=== PATIENT | female | born 1955 | race Caucasian/White ===

== ENCOUNTER 2021-02-21 08:17 | Outpatient (CLI) | payer MEDICARE, SELFPAY ==
--- NOTE | 2021-02-21 08:30 | MM_ITS ---
WS: [id number] BILATERAL SCREENING DIGITAL MAMMOGRAM WITH CAD HISTORY: SCREENING COMPARISON: 07/14/2015 Bilateral CC and MLO views submitted. Computer aided detection analyzed. Breast composition: There are scattered areas of fibroglandular density. No suspicious masses, microc alcifications or architectural distortion. Benign calcification posterior upper RIGHT breast. MM/[id number] IMPRESSION: BI-RADS: 2-Benign FOLLOW UP: 1 Year Follow-up
== END 2021-02-21 08:18 | disposition home or self-care (01) ==
LOC: RADSHAW 08:21
PROVIDERS: PCP Family Medicine; Visit Provider Family Medicine
DX: Z12.31 Encounter for screening mammogram for malignant neoplasm of breast (principal)
CPT/HCPCS: 77067

== ENCOUNTER 2022-02-27 14:03 | Outpatient (CLI) | payer MEDICARE, SELFPAY ==
--- NOTE | 2022-02-27 14:22 | XR_ITS ---
WS: [email or web address] DEXA (DUAL ENERGY X-RAY ABSORPTIOMETRY) Bone mineral density was performed using a [employer] machine. HISTORY: POST MENOPAUSAL COMPARISON: None available. Lumbar spine BMD (L1-L4): 1.076 g/cm2 T score: -0.9 Z score: 1.1 Total hip BMD: Left: 0.828 g/cm2. T score: -1.4 Z score: 0.1 Right: 0.862 g/cm2. T score: -1.2 Z score: 0.4 10 year probability of a major osteoporotic fracture is 8.9%. XR/XR DEXA axial skeleton* [id number] IMPRESSION: OSTEOPENIA based upon the WHO classification for females.
== END 2022-02-27 14:04 | disposition home or self-care (01) ==
PROVIDERS: PCP Family Medicine; Visit Provider Nurse Practitioner Family
DX: Z78.0 Asymptomatic menopausal state (principal)
CPT/HCPCS: 77080

== ENCOUNTER 2022-03-07 12:53 | Outpatient (CLI) | payer MEDICARE, SELFPAY ==
--- NOTE | 2022-03-07 13:06 | MM_ITS ---
WS: [email or web address] BILATERAL 3D TOMOSYNTHESIS DIGITAL SCREENING MAMMOGRAPHY WITH CAD CLINICAL INFORMATION: SCREENING HISTORY: Screening mammogram. No current complaints. COMPARISON: February 21, 2021 TECHNIQUE: Bilateral CC and MLO views. FINDINGS: Scattered fibroglandular densities bilaterally. No suspicious focal mass, asymmetry, calcifications, or architectural distortion. No evidence of malignancy. A few incidental punctate calcifications. Vas cular calcification.. MM/[place] [id number] IMPRESSION: BI-RADS: 2-Benign FOLLOW UP: 1 Year Follow-up Recommend return to annual screening mammography.
== END 2022-03-07 12:54 | disposition home or self-care (01) ==
LOC: RAD 12:54
PROVIDERS: PCP Family Medicine; Visit Provider Family Medicine
DX: Z12.31 Encounter for screening mammogram for malignant neoplasm of breast (principal)
CPT/HCPCS: 77063; 77067

== ENCOUNTER 2023-03-12 13:55 | Outpatient (CLI) | payer MEDICARE, SELFPAY ==
--- NOTE | 2023-03-12 14:06 | MM_ITS ---
WS: [id number] BILATERAL 3D TOMOSYNTHESIS DIGITAL SCREENING MAMMOGRAPHY WITH CAD CLINICAL INFORMATION: SCREENING HISTORY: Screening mammogram. No current complaints. COMPARISON: 2021 TECHNIQUE: Bilateral CC and MLO views. FINDINGS: Scattered fibroglandular densities bilaterally. No suspicious focal mass, asymmetry, calcifications, or architectural distortion. No evidence of malignancy. Incidental punctate calcification LEFT breast . Vascular calcification. IMPRESSION: MM/[place] [id number] BI-RADS: 2-Benign FOLLOW UP: 1 Year Follow-up Recommend return to annual screening mammography.
== END 2023-03-12 13:56 | disposition home or self-care (01) ==
LOC: RAD 13:55
PROVIDERS: PCP Family Medicine; Visit Provider Family Medicine
DX: Z12.31 Encounter for screening mammogram for malignant neoplasm of breast (principal)
CPT/HCPCS: 77063; 77067

== ENCOUNTER 2023-05-22 07:00 | Outpatient (CLI) | payer MEDICARE, SELFPAY ==
--- NOTE | 2023-05-22 07:15 | MR_ITS ---
WS: [email or web address] EXAMINATION: MR hip RT wo con* [id number] ORDER DATE: 05/22/2023 7:18 AM COMPARISON: MRI pelvis 2010 HISTORY: R HIP PAIN CONTRAST: MRI pelvis 2011 TECHNIQUE: Coronal STIR of the Pelvis. Coronal proton density, coronal T1, axial T2 fat sat, axial T1 , sagittal T2 fat sat, and sagittal T1 performed of the hip. FINDINGS: Advanced degenerative arthritis RIGHT hip is progressed compared to 2011. Advanced joint space narrow ing with near [id number] articulation. Hypertrophic changes about the acetabulum. Subchondral cysti c change involving the acetabulum. Extensive subchondral cystic change involving the femoral head wit h large subchondral cysts measuring up to 1.8 cm. Hypertrophic changes about the femoral head neck ju nction. Edema in the femoral head extending into the femoral neck. Small amount of serpiginous suscep tibility artifact in the posterior femoral head can be seen with early avascular necrosis. LEFT hip is normal in appearance. No significant edema. Normal bone marrow signal in the sacrum and l ower lumbar spine. No other acute findings. IMPRESSION: 1. Advanced degenerative arthritis RIGHT hip with extensive subchondral cystic change in the femoral head with near [id number] articulation significantly progressed compared to 2011. 2. Edema in the RIGHT femoral head and neck with hypertrophic changes about the femoral head neck ju nction and acetabulum. Small amount of edema and subchondral cystic change in the adjacent acetabulum . 3. Small amount of serpiginous susceptibility artifact in the posterior femoral head can be seen wit h early avascular necrosis. 4. Normal bone marrow signal in the LEFT hip.
== END 2023-05-22 07:01 | disposition home or self-care (01) ==
LOC: RAD 07:00
PROVIDERS: PCP Family Medicine; Visit Provider Family Medicine
DX: M25.551 Pain in right hip (principal); M16.11 Unilateral primary osteoarthritis, right hip; M25.451 Effusion, right hip
CPT/HCPCS: 73721

== ENCOUNTER → 2023-09-25 11:52 | Outpatient (BNVA) | payer MEDICARE, SELFPAY | PROVIDERS: PCP Family Medicine; Visit Provider Family Medicine | DX: Z13.6 Encounter for screening for cardiovascular disorders (principal); R73.9 Hyperglycemia, unspecified | CPT/HCPCS: 80053; 83036; 85025 ==

== ENCOUNTER → 2024-01-12 12:20 | Outpatient (BNVA) | payer MEDICARE, SELFPAY | PROVIDERS: PCP Family Medicine; Visit Provider Family Medicine | DX: Z86.39 Personal history of other endocrine, nutritional and metabolic disease (principal); E55.9 Vitamin D deficiency, unspecified; N18.2 Chronic kidney disease, stage 2 (mild); E06.3 Autoimmune thyroiditis | CPT/HCPCS: 80048; 82306; 84439; 84443; 86376 ==

== ENCOUNTER 2024-03-01 12:47 | Outpatient (CLI) | payer MEDICARE, SELFPAY ==
--- NOTE | 2024-03-01 12:49 | XR_ITS ---
WS: [email or web address] DEXA (DUAL ENERGY X-RAY ABSORPTIOMETRY) Bone mineral density was performed using a [employer] machine. HISTORY: screening COMPARISON: 02/27/2022 Lumbar spine BMD (L1-L4): 0.993 g/cm2 T score: -1.6 Z score: 0.7 Total hip BMD: Left: 0.781 (g/cm2). T score: -1.8 (no units) Z score: 0.1 (no units) Left forearm BMD: 0.811 g/cm2. T score: -0.7 Z score: 1.0 10 year probability of a major osteoporotic fracture is 8.7%. Compared to the prior study from 02/27/2022. Lumbar spine bone mineral density has decreased by 7.7%. LEFT hip bone mineral density has decreased by 5.7%. XR/XR DEXA axial skeleton* [id number] IMPRESSION: OSTEOPENIA based upon the WHO classification for females. Significant decrease in bone mineral density within both the lumbar spine and L EFT hip since the prior study.
== END 2024-03-01 12:48 | disposition home or self-care (01) ==
LOC: RAD 12:48
PROVIDERS: PCP Family Medicine; Visit Provider Family Medicine
DX: Z13.820 Encounter for screening for osteoporosis (principal); M85.80 Other specified disorders of bone density and structure, unspecified site
CPT/HCPCS: 77080

== ENCOUNTER → 2024-03-29 15:27 | Outpatient (BNVA) | payer MEDICARE, SELFPAY | PROVIDERS: PCP Family Medicine; Visit Provider Family Medicine | DX: E06.3 Autoimmune thyroiditis (principal) | CPT/HCPCS: 80053; 84439; 84443; 86376 ==

== ENCOUNTER 2024-05-03 08:01 | Outpatient (CLI) | payer MEDICARE, SELFPAY ==
--- NOTE | 2024-05-03 | MM_ITS ---
WS: [email or web address] VIEWS: MLO and CC views both breasts. 3D digital tomosynthesis is also included in this exam. Comparison made with prior exam of 11/06/2010, 07/14/2015, 02/21/2021, 03/07/2022, 03/12/2023.. Findings: The breasts are almost entirely fatty. No sign of suspicious mass, tumor calcification or architectural distortion. MM/MM scr BI tomosynthesis [id number] Impression: BI-RADS: 1 - Negative. FOLLOW-UP: 1 Year Follow-up This mammogram was also analyzed by the Computer Aided Detection System R2 Imag e Theoretical Physicist.
--- NOTE | 2024-05-03 08:03 | CT_ITS ---
WS: [email or web address] CT NECK TECHNIQUE: Noncontrast CT of the neck with coronal and sagittal reformatted images. CLINICAL INFORMATION: DYSPHAGIA COMPARISON: None. DLP: 122.[address] scans at [facility] use at least one of these dose optimization techniques: automated e xposure control; mA and/or kV adjustment per patient size (includes targeted exams where dose is matc hed to clinical indication); or iterative reconstruction. FINDINGS: Straightening of the normal cervical lordosis. Mild spondylitic changes. Anterior hypertrophic change s cervical spine. Dental artifact degrades some images. Parotid glands appear normal. Submandibular g lands appear normal. No evidence of supraglottic or glottic mass. Normal parapharyngeal fat. Normal v allecula and piriform sinuses. Normal subglottic airway. Fibrosis in the lung apices. Paranasal sinuses and mastoid air cells are well aerated. CT/CT neck wo con [id number] IMPRESSION: 1. No acute neck findings. 2. No evidence of supraglottic or glottic mass. 3. Normal salivary glands. 4. No cervical lymphadenopathy.
--- NOTE | 2024-05-03 08:03 | FL_ITS ---
WS: [email or web address] Exam: FL barium swallow [id number] Date/Time of Exam: 05/03/2024 8:03 AM Reason For Exam: DYSPHAGIA Fluoroscopy time: Oropharyngeal phase of swallowing was normal. There is mild posterior extrinsic narrowing of the cerv ical esophagus at the C3-4, C4-5, C5-6 and C6-7 levels secondary to anterior osteophytes and probable thickening of the anterior longitudinal ligament. No other significant stenosis identified. No intri nsic esophageal masses were noted. Motility was normal. No hiatal hernia or GE reflux. The esophagus is not displaced. FL/FL barium swallow [id number] IMPRESSION: 1. Mild extrinsic narrowing of the cervical esophagus from C3-C7 secondary to a nterior spondylosis and probable ligamentous thickening. 2. No intrinsic esophageal mass and no other significant area of narrowing. Minutes # of spot films:
== END 2024-05-03 08:02 | disposition home or self-care (01) ==
LOC: RAD 08:02
PROVIDERS: PCP Family Medicine; Visit Provider Specialist
DX: Z12.31 Encounter for screening mammogram for malignant neoplasm of breast (principal); R92.313 Mammographic fatty tissue density, bilateral breasts; R13.10 Dysphagia, unspecified; K22.2 Esophageal obstruction; M25.70 Osteophyte, unspecified joint; R93.7 Abnormal findings on diagnostic imaging of other parts of musculoskeletal system; J84.10 Pulmonary fibrosis, unspecified
CPT/HCPCS: 70490; 74220; 77063; 77067

== ENCOUNTER → 2025-02-04 10:41 | Outpatient (BNVA) | payer MEDICARE, SELFPAY | PROVIDERS: PCP Family Medicine; Visit Provider Family Medicine | DX: Z13.6 Encounter for screening for cardiovascular disorders (principal) | CPT/HCPCS: 80053; 80061; 84439; 84443; 85025 ==

== ENCOUNTER 2025-03-04 12:29 | Emergency (ER) | payer MEDICARE, SELFPAY ==
--- OUTSIDE RECORDS SUMMARY | 2025-03-04 12:35 | XMS_ITS | Clinical Summary ---
Author Organization [facility] Address [address] 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 Resolved Problems Problem Noted Date Diagnosed Date Resolved Date Preoperative general physical examination 07/26/2023 08/12/2023 Encounters Date Type Department Care Team Description 01/26/2025 External Device Data STL ABSTRACTION Provider, Abstract 01/25/2025 External Device Data ST[facility] ABSTRACTION Provider, Abstract 12/28/2024 External Device Data ST[facility] ABSTRACTION Provider, Abstract 12/21/2024 External Device Data ST[facility] ABSTRACTION Provider, Abstract 12/14/2024 External Device Data ST[facility] ABSTRACTION Provider, Abstract from Last 3 Months Immunizations Immunization Administration Dates Next Due Influenza Seasonal Unspecified Formulation IM Family History Medical History Relation Name Comments Atrial fibrillation Mother Broken h eart syndrome Relation Name Status Comments Mother Social History Tobacco Use Types Packs/Day Years Used Date Smoking Tobacco: Never Smokeless Tobacco: Never Tobacco Cessation:Counseling Given: Not Answered Alcohol Use Standard Drinks/Week Comments Not Currently 0 (1 standard drink = 0.6 oz pur e alcohol) Feeling Safe Answer Date Recorded Are you in a relationship wi th someone who hurts you emotionally and/or physically? 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 Gender Identity Female 09/04/2023 8:50 PM CDT Sexual Orientation Straight 09/04/2023 8: 50 PM CDT Last Filed Vital Signs Vital Sign Reading Time Taken Comments Blood Pressure 100/72 09/27/2024 2:07 PM CDT Pulse 65 08/13/2023 8:18 AM CDT Temperature 36.7 C (98 F) 08/13/2023 8:18 AM CDT Respiratory Rate 18 08/13/2023 8:18 AM CDT Oxygen Saturation 95% 08/13/2023 8:18 AM CDT Inhaled Oxygen Concentration - - Weight 47.6 kg (105 lb) 09/27/2024 2:07 PM CDT Height 162.6 cm (5' 4 ) 09/27/2024 2:07 PM CDT Body Mass Index 18.02 09/27/2024 2:07 PM CDT Plan of Treatment Health Maintenance Due Date Last Done Comments DTAP/TDAP/TD VACCINES (1 - Tdap) 1973 BREAST CANCER SCREENING 1994 COLORECTAL SCREENING 09/10/1999 Colorectal Cancer Screening 09/10/1999 FIT-DNA Q 3 years 09/10/1999 FIT/FOBT Q 1 year 09/10/1999 Flex Sig/CT Colonography Q 5 years 09/10/1999 PNEUMOCOCCAL VACCINE 50+ YEA RS (1 of 1 - PCV) 2004 ZOSTER VACCINE (1 of 2) 2004 OSTEOPOROSIS SCREENING 09/10/2019 INFLUENZA VACCINE (#1) 2024 , 12/31/2022, 12/18/2021, Additional history exists COVID-19 Vaccine (2024-2 6 season) 2024 12/31/2022, 12/18/2021, 07/17/2021, Additional history exists RSV VACCINE (60+ or ) (1 - 1-dose 75+ series) 2029 Medical Devices Implanted Type Area Supervisor Tellers Device Identifier Shelf Expiration Date Model / Serial / Lot Stem Fem Actis Colr Std Sz5 1010-11-050 - [id number] Implanted:Qty: 1 on 08/12/2023 by Rafael Andrew MD at [facility] Hip Right: Hip [employer] [id number] 06/04/2033 1010-11-0 50 / / [id number] Head Fem Art/Rubén Cer Sz36 1365-36-310 - [id number] Implanted:Qty: 1 on 08/12/2023 by Rafael Andrew MD at [facility] Hip Right: Hip [employer] [id number] 01/05/2028 1365-36-3 10 / / [id number] Emphasys Poly Liner 48mm 36mm Implanted:Qty: 1 on 08/12/2023 by Rafael Andrew MD at [facility] Right: Hip 06/04/2028 DEPUY-472 2-48-036 / / [id number] [employer] Acetab Shell 48mm Implanted:Qty: 1 on 08/12/2023 by Rafael Andrew MD at [facility] Right: Hip 07/05/2033 DEPUY-471 0-48-300 / / [id number] [place] [address] MEDICARE HMO RX [facility] Medicare Part D Advance Directives For more information, please contact: [phone] Documents on File Type Date Recorded Patient Gas Charger Expl anation Advance Directive POA 06/25/2023 5:16 PM A dvance Directive POA
--- OUTSIDE RECORDS SUMMARY | 2025-03-04 12:35 | XMS_ITS | Encounter Summary ---
Author Organization [employer] [facility] Address [address] [place] [address] Care Team Providers Care Flavor Maker Name Role Phone Unavailable Primary Care Provider Unavailabl e Encounter Details Date Type Department Care Team (Latest Contact Info) Description 08/24/[address] 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
--- OUTSIDE RECORDS SUMMARY | 2025-03-04 12:35 | XMS_ITS | Encounter Summary ---
Author Organization [facility] Address [address] [place] [address] Care Team Providers Care Group Underwriter Name Role Phone Unavailable Primary Care Provider Unavailabl e Encounter Details Date Type Department Care Team (Latest Contact Info) Description 06/13/1998 Outpatient Historical [facility] Dermatology- [facility] Oscar [address] [place] [address] Srinivas Benites MD NO ADDRESS ON FILE Benign randy skin trunk (Primary Dx) Social History Tobacco Use Types Packs/Day Years Used Date Smoking Tobacco: Never Assessed Comments Unknown Sex and Gender Information Value Date Recorded Sex Assigned at Not on file 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
--- OUTSIDE RECORDS SUMMARY | 2025-03-04 12:35 | XMS_ITS | Clinical Summary ---
Author Organization 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
--- OUTSIDE RECORDS SUMMARY | 2025-03-04 12:35 | XMS_ITS | Encounter Summary ---
Author Organization [employer] 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
--- OUTSIDE RECORDS SUMMARY | 2025-03-04 12:35 | XMS_ITS | Data Portability ---
Author Organization [facility] [place] [facility], [facility] Address [address] [address] Care Team Providers Care Active Directory Administrator Name Role Phone KENISHA POLLOCK Primary Care Provider Unavaila ble Assessment Encounter Date Assessment Date Assessment LastModified by Organization Details LastModified Time 04/16/2023 04/16/2023 flonase otc. [email or web address] Not available 04/16/2023 12:11:49 Plan of Treatment Reminders Order Date Submit Date Provider Last Modified By Organization Details Last Modified Time Details Appointments None record ed. Lab ESR (eryth rocyte sedime ntatio n rate), blood 2023 024 [facility] ([facility]), [address] [place], [address], 4 10:23:50 C-reac tive protei n, quanti tative , serum or plasma 2023 024 HERNSHAW [employer] [facility], [address] [place] [address], [facility] [address] [place], [address], 4 11:11:15 Referral None record ed. Procedures None record ed. Surgeries None record ed. Imaging XR, hip, unilat eral, 2 or 3 view 2023 024 [email or web address] [facility] ([facility]), [address] [place], [address], 4 12:34:43 MRI, hip, w/o contra st 2023 024 [email or web address] [facility], [address] [place], [address], 17:24:55 Medication Orders predni sone 20 mg tablet 2023 024 [facility], [facility] [place], [address], 4 13:23:50 doxycy luong hyclat e 100 mg tablet 2023 024 [facility], [facility] [place], [address], 4 13:23:45 Patient TargetsNo targets recorded. Patient InstructionsNo instructions recorded. Reason for Referral None Reported. Results Created Date Observation Date Name Description Value Unit Range Abnormal Flag Note LastModifiedBy Organization Detail LastModifiedTime 04/24/1904/24/2023 CBC WBC 6.6 x10 4.0-10 .5 Not Available [place] [facility] [address] [facility], [place], [address], 04/24/2023 09:07:06 04/24/1904/24/2023 CBC RBC 4.57 x10 3.50-5 .50 Not Available [place] [facility] [address] [facility], [place], [address], 04/24/2023 09:07:06 04/24/1904/24/2023 CBC HGB 13.5 g/dL 12.0-1 6.0 Not Available [place] [facility] [address] N[address] [facility], [place], [address], 04/24/2023 09:07:06 04/24/19 24 04/24/2023 CBC HCT 40.1 % 37.0-4 7.0 Not Available [facility] [place] [facility] [address] Lilibeth Azar [facility] 1, [place], [address], 04/24/2023 09:07:06 04/24/19 24 04/24/2023 CBC MCV 87.8 fL 80.0-9 9.9 Not Available [place] [facility] [address] [facility], [place], [address], 04/24/2023 09:07:06 04/24/19 24 04/24/2023 CBC MCH 29.5 pg 27.0-3 2.0 Not Available [facility] [place] [facility] [address] Lilibeth Azar [facility] 1, [place], [address], 04/24/2023 09:07:06 04/24/19 24 04/24/2023 CBC MCHC 33.6 g/dL 32.0-3 6.0 Not Available [place] [facility] [address] [facility], [place], [address], 04/24/2023 09:07:06 04/24/19 24 04/24/2023 CBC RDW 13.4 % 11.5-1 4.6 Not Available [place] [facility] [address] [facility], [place], [address], 04/24/2023 09:07:06 04/24/19 24 04/24/2023 CBC plt 266.1 x10 140.0- 451.0 Not Available [place] [facility] [address] [facility], [place], [address], 04/24/2023 09:07:06 04/24/1904/24/2023 CBC lymphocytes % 19.3 % 20.0-5 0.0 low Not Available [place] [facility] [address] [facility], [place], [address], 04/24/2023 09:07:06 04/24/19 24 04/24/2023 CBC granulcytes % 66.2 % 30.0-7 0.0 Not Available [facility] [address] [address], [place], [address], 04/24/2023 09:07:06 04/24/19 24 04/24/2023 CBC monocytes % 10.0 % 2.0-10 .0 Not Available [facility] [address] [address], [place], [address], 04/24/2023 09:07:06 04/24/19 24 04/24/2023 CBC granulcytes# 4.4 x10 Not Trupti ilable [facility] [address] [address], [place], [address], 04/24/2023 09:07:06 04/24/19 24 04/24/2023 CBC lymphocytes # 1.3 x10 Not Available [facility] [address] [address], [place], [address], 04/24/2023 09:07:06 04/24/19 24 04/24/2023 CBC monocytes # 0.7 x10 Not Avai lable [facility] [address], [address], 04/24/2023 09:07:06 04/24/19 24 04/24/2023 CMP (FEMA LE) glucose 107.0 mg/dL 60.0-9 9.0 high Not Available [facility] [address] [address], [place], [address], 04/24/2023 10:17:06 04/24/19 24 04/24/2023 CMP (FEMA LE) BUN (blood urea nitrogen) 12.0 mg/dL 10.0-2 6.0 Not Available [facility] [address] [address], [place], [address], 04/24/2023 10:17:06 04/24/19 24 04/24/2023 CMP (FEMA LE) creatinine (serum) 0.9 mg/dL 0.4-1. 5 Not Available [facility] [address] [facility] 1, [place], [address], 04/24/2023 10:17:06 04/24/19 24 04/24/2023 CMP (FEMA LE) BUN/creatini ne ratio 13.19 ratio Not Available [facility] [address] [facility] 1, [place], [address], 04/24/2023 10:17:06 04/24/19 24 04/24/2023 CMP (FEMA LE) eGFR calculated 65.3 Not Available [facility] [address] [address], [place], [address], 04/24/2023 10:17:06 04/24/19 24 04/24/2023 CMP (FEMA LE) total protein 7.4 g/dL 6.0-8. 5 Not Available [facility] [address] [address], [place], [address], 04/24/2023 10:17:06 04/24/19 24 04/24/2023 CMP (FEMA LE) total bilirubin 0.6 mg/dL 0.2-1. 3 Not Available [facility] [address] [address], [place], [address], 04/24/2023 10:17:06 04/24/19 24 04/24/2023 CMP (FEMA LE) albumin 4.2 g/dL 3.5-5. 5 Not Available [facility] [address] [address], [place], [address], 04/24/2023 10:17:06 04/24/19 24 04/24/2023 CMP (FEMA LE) globulin 3.2 calc Not Available [facility] [address] [facility] 1, [place], [address], 04/24/2023 10:17:06 04/24/19 24 04/24/2023 CMP (FEMA LE) AST (SGOT) 34.0 U/L 0.0-46 .0 Not Available [place] [facility] [address] [facility] 1, [place], [address], 04/24/2023 10:17:06 04/24/19 24 04/24/2023 CMP (FEMA LE) altv (SGPT) 30.0 U/L 13.0-6 9.0 normal Not Available [place] [facility] [address] [facility] 1, [place], [address], 04/24/2023 10:17:06 04/24/19 24 04/24/2023 CMP (FEMA LE) A/G ratio 1.3 ratio Not Available [facility] [address] [facility] 1, [place], [address], 04/24/2023 10:17:06 04/24/19 24 04/24/2023 CMP (FEMA LE) ALP phos 83.0 U/L 30.0-1 40.0 normal Not Available [place] [facility] [address] [facility] 1, [place], [address], 04/24/2023 10:17:06 04/24/19 24 04/24/2023 CMP (FEMA LE) calcium 9.3 mg/dL 8.4-10 .5 Not Available [place] [facility] [address] [facility] 1, [place], [address], 04/24/2023 10:17:06 04/24/19 24 04/24/2023 CMP (FEMA LE) sodium 142.0 mmol/ L 136.0- 145.0 Not Available [place] [facility] [address] [facility], [place], [address], 04/24/2023 10:17:06 04/24/19 24 04/24/2023 CMP (FEMA LE) potassium 4.3 mmol/ L 3.5-5. 1 Not Available [place] [facility] [address] [facility] 1, [place], [address], 04/24/2023 10:17:06 04/24/19 24 04/24/2023 CMP (FEMA LE) chloride 108.0 mmol/ L 98.0-1 10.0 normal Not Available [place] [facility] [address] [facility] 1, [place], [address], 04/24/2023 10:17:06 04/24/19 24 04/24/2023 CMP (FEMA LE) C02 30.0 mmol/ L 22.0-3 1.0 Not Available [place] [facility] [address] [facility] 1, [place], [address], 04/24/2023 10:17:06 04/24/19 24 04/24/2023 CMP (FEMA LE) anion gap 4.0 calc Not Available [facility] [address] [facility] 1, [place], [address], 04/24/2023 10:17:06 04/24/19 24 04/24/2023 CMP (FEMA LE) osmolality 293.4 calc Not Available [place] [facility] [address] [facility] 1, [place], [address], 04/24/2023 10:17:06 04/24/19 24 04/24/2023 LIPID PROFI LE (FEMA LE) cholesterol 191.0 mg/dL 0.0-20 0.0 Not Available [place] [facility] [address] [facility] 1, [place], [address], 04/24/2023 10:17:08 04/24/19 24 04/24/2023 LIPID PROFI LE (FEMA LE) trig 88.0 mg/dL 0.0-15 0.0 Not Available [facility] [address] [address], [place], [address], 04/24/2023 10:17:08 04/24/19 24 04/24/2023 LIPID PROFI LE (FEMA LE) HDL - direct 52.0 mg/dL >40.0 Not Available [facility] [address] [facility] 1, [place], [address], 04/24/2023 10:17:08 04/24/19 24 04/24/2023 LIPID PROFI LE (FEMA LE) VLDL - direct 17.6 mg/dL Not Available [facility] [address] [address], [place], [address], 04/24/2023 10:17:08 04/24/19 24 04/24/2023 LIPID PROFI LE (FEMA LE) LDL - direct 121.4 mg/dL 0.0-13 0.0 Not Available [facility] [address] [address], [place], [address], 04/24/2023 10:17:08 04/24/19 24 04/25/2023 C-DAGOBERTO CTIVE PROTE IN C-reactive protein 8.2 mg/L <8.0 high Not Available [facility] [address] [place], [address], 04/25/2023 11:11:15 04/24/19 24 04/24/2023 ESR (eryt hrocy te sedim entat ion rate) , blood SedRate 31 Not Available [facility] ([facility]) [address] [place], [address], 04/24/2023 08:35:36 03/13/20 23 03/12/2023 MAMMO , scree jonathan, bilat eral No observ ation record ed. [email or web address] [facility] [address] [place], [address], 03/25/2023 16:21:37 05/22/19 24 05/22/2023 MRI, hip, w/o contr ast No observ ation record ed. [email or web address] [facility] [address] [place], [address], 06/23/2023 14:45:35 06/04/19 24 05/07/2023 XR, hip, unila teral , 2 or 3 view No observ ation record ed. [email or web address] [facility] [address] [place], [address], 06/09/2023 18:45:07 Result Notes None recorded. Problems Name Problem SNOMED Code Status Onset Date Resolution Date Notes Provider Name and Address Organization Details Recorded Time Lipoma Active 022 Lipoma removed 2000; 02/15/20 22 10:02AM by Gita Perez CMT, Office Visit; Promoted ; acuity set as *; Not Available [facility] 3 21:52:05 Pain of multiple joints 22303174 Active [address], [address] , [facility] 4 08:35:39 Pain of hip region 97632290 Active 024 SANJUANA stubbs [facility] 4 09:54:05 Problem Notes None recorded. Procedures Surgical History Date Name Laterality Status Provider Name and Address Organization Details Recorded Time 3 mammography completed SANJUANA HU [facility] Brett [facility]ino 03/17/2023 15:56:26 Imaging Results None recorded. Procedure Notes None recorded. Medical Equipment None Reported. Allergies No known drug allergies Medications Name Sig Start Date Stop Date Status Note LastModified by Organization Details LastModified Time azithromycin 250 mg tablet TAKE 2 TABLETS (500 MG) BY ORAL ROUTE ONCE DAILY FOR 1 DAY THEN 1 TABLET (250 MG) BY ORAL ROUTE ONCE DAILY FOR 4 DAYS 04/30 completed Not Available Not Available Not Available prednisone 20 mg tablet TAKE 1 TABLET BY MOUTH EVERY DAY EVERY MORNING for 7 days 04/30 completed Not Available Not Available Not Available sertraline 25 mg tablet 04/16 completed Not Available Not Available Not Available doxycycline hyclate 100 mg tablet TAKE 1 TABLET BY MOUTH TWICE DAILY for 10 days 04/30 completed Not Available Not Available Not Available Vitals Date Recorded Body height Body mass index (BMI) Body weight Oxygen saturation Heart rate Body temperature Respiratory rate Systolic And Diastolic Provider Name and Address Organization Details Last Updated DateTime 4 162.56 cm 20.3 kg/m2 83214.9 g 96 % 107 /min 97.3 [degF] 20 /min 112/65 mm[Hg] Teresa Grace [facility] 4 08:23:37 Date Recorded Body height Body weight Oxygen saturation Heart rate Respiratory rate Body temperature Systolic And Diastolic Provider Name and Address Organization Details Last Updated DateTime 4 162.56 cm 75952.8 1 g 98 % 94 /min 18 /min 98.1 [degF] 118/64 mm[Hg] JAYLENE NICOLAS [facility] 4 11:44:47 Date Recorded Body height Body mass index (BMI) Body weight Oxygen saturation Heart rate Respiratory rate Body temperature Systolic And Diastolic Provider Name and Address Organization Details Last Updated DateTime 4 162.56 cm 20.1 kg/m2 31612.3 1 g 98 % 97 /min 20 /min 97.9 [degF] 110/70 mm[Hg] UNIQUE BOYCE [facility] 4 08:18:06 Date Recorded Body height Body mass index (BMI) Body weight Oxygen saturation Heart rate Respiratory rate Body temperature Systolic And Diastolic Provider Name and Address Organization Details Last Updated DateTime 4 162.56 cm 20 kg/m2 66841.5 1 g 99 % 84 /min 18 /min 98.5 [degF] 120/64 mm[Hg] ESTRADACODIE BRADFORD NICOLAS [facility], [facility] 4 13:36:26 Social History None recorded. Functional Status None recorded. Mental Status None recorded. Family History Nothing Reported. Medical History No medical history recorded. Gynecological HistoryNo gynecological history recorded. Obstetrics History GPAL:G 0 P 0 0 0 0 Immunizations Vaccine Type Date Status Note Provider Nam e and Address Organization Details Recorded Time COVID-19, mRNA, LNP-S, PF, 30 mcg/0.3 mL dose 07/18/2021 completed Not Available [facility] 3 02:32:54 Past Encounters Encounter ID Performer Location Encounter Start Date Encounter Closed Date Diagnosis/Indication Diagnosis SNOMED-CT Code Diagnosis ICD10 Code Diagnosis IMO Codes Diagnosis Note [id number] GONZALO STANLEY PA-C [employer] [facility] ([facility]) [address] [place] [phone] 06/28/2022 10:59:40 06/28/2022 12:14:56 Acute maxillary sinusitis 90570151 J01.00 [id number] GONZALO STANLEY PA-C [employer] [facility] ([facility]) [address] [place] [phone] 03/28/2023 09:42:38 03/28/2023 10:16:18 Acute maxillary sinusitis 07971600 J01.00 [id number] ALBA MENDOZA [employer] [facility] ([facility]) [address] [place] [phone] 5 04/09/2023 08:02:02 04/09/2023 09:33:47 Acute upper respiratory infection 00902521 J06.9 Start doxycyclin e today. Encouraged patient to push fluids and use cool mist humidifier at night. Patient was given nasal saline mist and gel samples to trial. Can take tylenol/ib uprofen as needed for pain and fever. Encouraged patient to return for further evaluation if no improvemen t in 3-5 days. If fever is not resolved in 3-5 days, need to follow up with PCP for further evaluation . If severe SOB or chest pain occurs, go to ED. Patient verbalized understand ing. [id number] Kenisha Pollock MD [employer] [facility] ([facility]) [address] [place] [phone] 04/16/2023 11:20:24 04/16/2023 12:13:09 Fever 375991430 R50.9 Pain of ear 699398693 H9 2.09 Acute uppe r respiratory infection 17181454 J06.9 [id number] Melvin Abraham DO [employer] [facility] ([facility]) [address] [place] [phone] 04/24/2023 08:03:32 04/24/2023 09:18:52 Pain of multiple joints 23553099 M25.50 concern for flair of osteoarthr itis, possibly 2/2 recent vial illness.wi ll give steroid burst. check inflammato ry labs with other labs ordered b Dr. Pollock. keep fu with him next. [id number] Kenisha Pollock MD [employer] [facility] ([facility]) [address] [place] [phone] 04/24/2023 08:41:34 04/24/2023 08:42:15 [id number] Kenisha Pollock MD [employer] [facility] ([facility]) [address] [place] [phone] 04/30/2023 12:23:19 05/10/2023 17:24:55 Pain of multiple joints 30221934 M25.50 Pain of ri ght hip joint 9095302930 20986 M25.551 The patient has been to pt 2 times she has been on been on multiple regimens of NSAIDS. She has been on predisone. She is unable to pivot her foot without having severe pain in her hip. She has to use a walker intermitte ntly at home due to pain. She needs an xray and an MRI to eval for anatomy that may respond to surgical interventi on.Worse when she steps up with her leg multiple times. Health Concerns Section Related Observation LastModified by Organization Detai ls LastModified Time None Recorded Concern Status LastModified by Organization Details LastModified Time None Recorded Advance Directives Directive None Recorded Payers Insurance Date Sequence Insurance Name Policy Number Policy Benz Covered Member ID Benz Member ID Guarantor Name 06/03/2023 1 [employer] (MEDICARE REPLACEMENT/ ADVANTAGE - PPO) Fransisca Bolton [id number] Fransisca Bolton 06/28/2022 1 [place] Fransisca Bolton [id number] Fransisca Bolton 06/03/2023 1 [place] - [place]) [id number] Fransisca Bolton [id number] Fransisca Bolton Notes Date Note Type Note Provider Name and Address Organization Details Recorded Time 04/09/2023 text/html Upper Respirator y SymptomsReported by PatientUpper Respiratory SymptomsFor associated symptoms, patient reportsfever. For location, patient reportshead. For duration, patient reportssymptoms lasting less than 2 weeks. For onset/timing, patient reportsgradual.ROS as noted in the HPI Patient is a 67 year old female who presents to the walk in clinic today for cough and sinus pain. Patient states sinus pain started on 03/20/23 when she was exposed to cleaning chemicals. States she was seen last week and had developed a sinus infection and was treated with azithromycin. Says she felt better while on the Z-pack, however, symptoms returned upon completion. Patient states she has had intermittent fevers for 2 weeks that are easily controlled with tylenol/ibuprofen but states the fevers are not resolving. Sinus pain is worse now than before she started the z-pack. LINSEY CARROLL, JANENE-C [address] [place] [address], [phone], [facility], [place] 04/09/2023 09:21:28 04/16/2023 text/html Upper Respirator y SymptomsReported by PatientUpper Respiratory SymptomsFor quality, patient reportscongested. For associated symptoms, patient reportsshortness of breath,difficulty breathing at night,fatigue,fever, andchills. For location, patient reportshead. For duration, patient reportssymptoms lasting over 2 weeks. For onset/timing, patient reportsgradual.ROS as noted in the HPI Walk in follow up. Patient states sinus pain started on 03/20/23 when she was exposed to cleaning chemicals. States she was seen in March and was treated with azithromycin. patient states she has had intermittent fevers for weeks that are staying around 99 to 100 starting in the evenings, Pt is having left ear pain, chest congestion and has started coughing over the last few days. Pt will finish her Doxycycline on Friday. Kenisha Pollock MD [address] [place] [address], [phone], [facility], LDeclan. 04/16/2023 12:12:32 04/24/2023 text/html Joint PainReport ed by PatientHPIFor quality, patient reportssharp,tingling, anddull. For severity, patient reportsdriving impairment,worsening,i nterferes with sleep, andinterferes with work/school. For associated symptoms, patient reportsfeverandweak limbs(temp goes up to 99.0). For location, patient reportsbilateral neck,bilateral shoulder,bilateral arm,bilateral elbow,bilateral wrist,bilateral hand,__ __,bilateral hip,bilateral knee,bilateral ankle,bilateral foot, and__ __ toe. For duration, patient reportspresent <1 month(1 week). For timing, patient reportsdate of onset:andconstant(last wed.). For aggravating factors, patient reportsmovement/positi oning,bending over, andtwisting. For adls affected, patient reportssweeping,moppin g,bathing,dressing,eat ing, andclimbing stairs. I started having joint and muscle pain last Wed. not getting any better. I used Tylenol and Aleve and it's not helping. I saw Dr Pollock last week and will have labs this morning for him and have an appt. with him next week. pt saw Dr. Pollock for URI symptoms on 04/16/23, was on doxycycline for 1 wk prior.Was told to finish doxycyline.she struggles with b/l hand pain and right hip pain from osteoarthrhtis. it feels like all her joint pains are a lot worse. Melvin Abraham DO [address] [place] [address], [phone], [facility] L[facility]inoC. 04/24/2023 08:41:49 04/30/2023 text/html Joint PainReport ed by PatientHPIFor quality, patient reportsdull. For location, patient reportsbilateral arm,bilateral elbow,bilateral wrist,bilateral hand,__ __,right hip, andright knee. For severity, patient reportsimproving. For aggravating factors, patient reportsmovement/positi oning,bending over, andtwisting. For associated symptoms, patient reportsno fever. For duration, (1 week). Pt was seen at the walk in Dr Abraham on 04/24/23 for joint pain and swelling, pt had some labs and was given prednisone and she finished that this morning, pt states her swelling is down, she still has generalized achyness in her arms and legs.. Pt would like to discuss getting a x-ray on her right hip, pt has tried PT 2 times and water aerobics and she is still dealing with pain in her right hip from a injury that occurred 8 years ago when she did the splits and injured herself. Kenisha Pollock MD [address] [place] [address], [phone], [facility], [place] 05/10/2023 11:43:56 OBGyn Episode No OBEpisode recorded.
--- OUTSIDE RECORDS SUMMARY | 2025-03-04 12:35 | XMS_ITS | Encounter Summary ---
Author Organization [employer] [facility] Address [address] [place] [address] Care Team Providers Care Cosmetic Sales Consultant Name Role Phone Unavailable Primary Care Provider Unavailabl e Encounter Details Date Type Department Care Team (Latest Contact Info) Description 08/17/1998 Outpatient Historical [facility] Koby Reyes MD NO ADDRESS ON FILE Benign randy skin trunk (Primary Dx) Social History Tobacco Use Types Packs/Day Years Used Date Smoking Tobacco: Never Assessed Comments Unknown Sex and Gender Information Value Date Recorded Sex Assigned at Not on file Legal 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
[2025-03-04 12:37] VITALS: BP 133/87; PULSE 98; RESP 16; TEMP 36.8; O2SAT 100; BMI 18.0
--- NOTE | 2025-03-04 12:40 | CTR_ITS ---
PROCEDURE INFORMATION: Exam: CT Head Without Contrast Exam date and time: 03/04/2025 1:04 PM Age: 69 years old Clinical indication: Syncope and collapse TECHNIQUE: Imaging protocol: Computed tomography of the head without contrast. Radiation optimization: All CT scans at this facility use at least one of these dose optimization techniques: automated exposure control; mA and/or kV adjustment per patient size (includes targeted exams where dose is matched to clinical indication); or iterative reconstruction. COMPARISON: CT neck wo con [id number] 05/03/2024 8:19 AM RADIATION DOSE METRICS: Total DLP (mGy-cm): 1029.38 FINDINGS: Brain: Mild generalized cortical volume loss. No hemorrhage. Periventricular and subcortical white matter hypodensities likely represent chronic small vessel ischemic changes. No mass effect. Cerebral ventricles: No ventriculomegaly. Paranasal sinuses: Visualized sinuses are unremarkable. No fluid levels. Mastoid air cells: Visualized mastoid air cells are well aerated. Bones: Unremarkable. No acute fracture. Soft tissues: Unremarkable. CT/CT head wo con* [id number] IMPRESSION: No acute intracranial abnormality.
--- NOTE | 2025-03-04 12:40 | ECG_ITS ---
[facility] Test Date: 2025-03-04 Pat Name: Fransisca Bolton Department: Room: Gender: Female [employer] Teacher: : 1955 Requested By: Pilo Gilmore Order Number: [id number] Yudi MD: Luis E Zacarias M.D. Measurements Intervals Mar Lin Rate: 91 P: 27 MA: 129 QRS: 81 QRSD: 97 T: 3 QT: 340 QTc: 419 Interpretive Statements SINUS RHYTHM INCOMPLETE RIGHT BUNDLE BRANCH BLOCK [90+ ms QRS DURATION, TERMINAL R IN V1/V2, 40+ ms S IN I/aVL/V4/V5/V6] NONSPECIFIC T-WAVE ABNORMALITY No previous ECG available for comparison Electronically Signed On 03-05-2025 15:59:47 FISH STRAIGHTENER by Luis E Zacarias M.D. [id number]
--- NOTE | 2025-03-04 12:40 | XRR_ITS ---
PROCEDURE INFORMATION: Exam: XR Chest Exam date and time: 03/04/2025 12:48 PM Age: 69 years old Clinical indication: Pain; Angina pectoris; Additional info: Cp TECHNIQUE: Imaging protocol: Radiologic exam of the chest. Views: 1 view. COMPARISON: CT neck con [id number] 05/03/2024 8:19 AM FINDINGS: Lungs: Unremarkable. No consolidation. Pleural spaces: Unremarkable. No pleural effusion. No pneumothorax. Heart/Mediastinum: Unremarkable. No cardiomegaly. Bones/joints: Unremarkable. XR/XR chest 1V portable [id number] IMPRESSION: No acute findings.
--- NOTE | 2025-03-04 12:46 | ED_ITS ---
HPI - Syncope 2 General: Chief Complaint: Syncope Stated Complaint: CP SOB Neck Pain chocking Time Seen by Provider: 03/04/25 12:34 Source: patient Mode of arrival: ambulatory Limitations: no limitations History of Present Illness: 69-year-old female states that she has h ad episodes of syncope has been going on for over a year. States that her PCP thinks she may have POTS. She states that on Friday she had an episode where she had passed out while sitting and then had another episode today. She had some mild chest pain denies any severe chest pains had some slight shortness of breath as well she denies any headache denies any vomiting or diarrhea Related Data Home Medications ?Medication ?Instructions ?Recorded ?Confirmed cholecalciferol (vitamin D3) 125 125 mcg PO DAILY 09/0602/04/25 mcg (5,000 unit) capsule B-complex with vitamin C 1 cap PO DAILY 02/03/2401/07 Previous Rx's ?Medication ?Instructions ?Recorded albuterol sulfate 90 mcg/actuation 2 puff inhalation Q 6H PRN 02/03/24 aerosol inhaler (Ventolin HFA) shortness of breath or wheezing #8.5 grams fluticasone propionate 50 1 spray intranasal DAILY PRN nasal 02/03/24 mcg/actuation nasal congestion #16 grams spray,suspension (Flonase Allergy Relief) varicella-zoster glycoE [id number] 0.5 ml IM ONCE #1 e a 02/04/25 adj(PF) 50 mcg/0.5 mL IM susp, kit (Shingrix (PF)) Allergies Allergy/AdvReac Type Severity Reaction Status Date / Time No Known Allergies Allergy Verified 02/04/25 09:44 Review of Systems 2 Card: Reports: syncope [facility] 2 PFSH: Medical History (Updated 03/04/25 @ 13:59 by Pilo Gilmore MD) Vitamin D deficiency Multiple food allergies Chronic kidney disease, stage 2 (mild) History of hemochromatosis 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 Follows with brijesh in [place]. Surgical History Hx of eye surgery Family History Father Cancer Grandfather Heart attack Other Breast cancer Hyperlipidemia Denies family history of Alzheimer's dementia Jjufd-6-[id number] deficiency Alcohol dependence Bone disease ALS (amyotrophic lateral sclerosis) Adrenal disease Brain cancer Diabetes Blindness and low vision Immunodeficiency disorder Bladder cancer Bone cancer Garry disease Diabetes mellitus type 1 Diabetes mellitus, type 2 CAD (coronary artery disease) Congestive heart failure (CHF) Infertility Anaphylaxis Anemia Aneurysm Arrhythmia Autism Autoimmune disease Bipolar disorder Atrial fibrillation History of renal dialysis Crohn's disease Dementia Depression Eating disorder Eczema Raivndra-Danlos syndrome Heart disease Hemochromatosis Hemophilia Hepatitis Bradford's chorea Allergies Hyperthyroidism Hypothyroidism Kidney stones Achondroplasia Head and neck cancer Developmental delay Anesthesia complication Congenital heart disease Bleeding disorder Cystic fibrosis Glaucoma Hypertension Cardiomyopathy Drug dependence Social History Smoking and tobacco/nicotine status: never used tobacco/nicotine Alcohol intake: never Substance/Drug Use: never Adopted: No Caregiver/support person: No Lives independently: Yes Housing: House Marital status: Physical Exam 2 Const: COMMON NORMALS: no acute distress, patient oriented x3 and healthy appearing HENMT: COMMON NORMALS: normocephalic and atraumatic HEAD & SCALP: n ormocephalic and atraumatic Eye: COMMON NORMALS: Equal, round and reactive pupils present and EOMs intact bilaterally PUPIL: Yes Equal, round and reactive pupils present Neck/C-Spine: COMMON NORMALS: full ROM and supple Chest: COMMONS NORMALS: normal inspection of the chest and normal palpation of entire chest wall Resp: COMMON NORMALS: normal respiratory effort, No retractions, No use of accessory muscles and clear to auscultation bilaterally AUSCULTATION: clear to auscultation bilaterally Cardio: COMMON NORMALS: regular rate, regular rhythm and No murmurs present (Cardio) RATE: regular rate RHYTHM: regular rhythm Extremity: COMMON NORMALS: normal to inspection and full ROM Neuro: COMMON NORMALS: patient oriented x3, moves all extremities and no focal motor deficits Psych: COMMON NORMALS: mental status grossly normal, Normal thought process present and cooperative THOUGHT PROCESS: Normal thought process present Skin: COMMON NORMALS: no rashes or lesions noted and no wounds GENERAL SKIN EXAM: no rashes or lesions noted Course 2 Vital Signs: Vital signs: Vital Signs Temperature 98.3 F 03/04/25 12:37 Pulse Rate 98 03/04/25 12:37 Respiratory Rate 16 03/04/25 12:37 Blood Pressure 133/87 03/04/25 12:37 Pulse Oximetry 100 03/04/25 12:37 Oxygen Delivery Me thod Room Air 03/04/25 12:37 MDM - Syncope Medical Decision Making 69-year-old female presents here with syncopal episode she been having syncopal episodes for over a year PCP believes she may have POTS. Differential here included arrhythmia, intracranial mass, pulmonary embolism. Did do a head CT that I interpreted showed no acute abnormalities EKG here showed normal sinus rhythm heart rate [address] elevation QRS 97 QTc 389. Blood work here showed no significant abnormalities troponin was negative D-dimer is negative no signs of PE. Blood pressures here been stable she has had no symptoms here I did go over all these findings with her she is to follow-up with her PCP in 3 to 5 days and return if worsening she understands agrees to plan. Medical Records I reviewed the patient's medical records. Lab Data I reviewed the patient's lab results. 03/04/25 13:17 03/04/25 13:17 Radiology Impressions Chest X-Ray 03/04/25 12:40 IMPRESSION: No acute findings. Head CT 03/04/25 12:40 IMPRESSION: No acute intracranial abnormality. Laboratory Results WBC 5.09 10^3/uL (3.29-11.43) 03/04/25 13:17 RBC 4.48 10^6/uL (3.85-5.65) 03/04/25 13:17 Hgb 13.20 g/dL (11.27-16.99) 03/04/25 13:17 Hct 39.6 % (36-47) 03/04/25 13:17 MCV 88.4 fl (85-98) 03/04/25 13:17 MCH 29.5 pg (27-33) 03/04/25 13:17 MCHC 33.3 g/dL (30-55) 03/04/25 13:17 RDW 12.8 % (12.1-15.1) 03/04/25 13:17 Plt Count 219 10^3/cmm (157-399) 03/04/25 13:17 MPV 9.8 fL (7.4-10.4) 03/04/25 13:17 Neut % (Auto) 53.7 % 03/04/25 13:17 Lymph % (Auto) 33.2 % 03/04/25 13:17 Davis % (Auto) 9.0 % 03/04/25 13:17 Eos % (Auto) 2.9 % 03/04/25 13:17 Baso % (Auto) 1.0 % 03/04/25 13:17 Neut # (Auto) 2.73 10^3/uL (1.8-7.7) 03/04/25 13:17 Lymph # (Auto) 1.7 10^3/uL (0.8-4.8) 03/04/25 13:17 Davis # (Auto) 0.5 10^3/uL (0.2-0.9) 03/04/25 13:17 Eos # (Auto) 0.2 10^3/uL (0.0-0.8) 03/04/25 13:17 Baso # (Auto) 0.1 10^3/uL (0.0-0.1) 03/04/25 13:17 Nucleated RBC % (auto) 0 % 03/04/25 13:17 Nucleated RBCs # 0.0 /100WBC 03/04/25 13:17 D-Dimer 0.28 ug/mLFEU (0-0.59) 03/04/25 13:17 Sodium 141 mmol/L (136-145) 03/04/25 13:17 Potassium 4.4 mmol/L (3.5-5.1) 03/04/25 13:17 Chloride 105 mmol/L (98-107) 03/04/25 13:17 Carbon Dioxide 26 mmol/L (22-29) 03/04/25 13:17 Anion Gap 14.4 (5-19) 03/04/25 13:17 BUN 11 mg/dL (8-23) 03/04/25 13:17 Creatinine 0.8 mg/dL (0.5-0.9) 03/04/25 13:17 GFR Calculation 70.9 mL/min (90-130) L 03/04/25 13:17 Glucose 88 mg/dL (65-115) 03/04/25 13:17 Calculated Osmolality 291 mOsm/kg (285-295) 03/04/25 13:17 Calcium 9.4 mg/dL (8.5-10.5) 03/04/25 13:17 Total Bilirubin 0.3 mg/dL (0.15-1.2) 03/04/25 13:17 AST 27 U/L (0-32) 03/04/25 13:17 ALT 28 U/L (0-33) 03/04/25 13:17 Alkaline Phosphatase 73 U/L (35-105) 03/04/25 13:17 Troponin T Baseline 7 ng/L (0-10) 03/04/25 13:17 Total Protein 6.8 g/dL (6.6-8.7) 03/04/25 13:17 Albumin 4.8 g/dL (3.5-5.2) 03/04/25 13:17 Globulin 2.0 g/dL (1.3-4.6) 03/04/25 13:17 All radiology interpretation(s) finalized by discharge EKG Data EKG 1: I personally reviewed and interpreted this EKG as follows: EKG interpretation date: 03/04/25 EKG interpretation time: 12:36 Interpretation: nsr hr [address] or t wave abnormalities qrs 97 qtc 389 Discharge Plan Discharge Patient Disposition: Home Clinical Impression: Syncope Condition: Stable Prescriptions: No Action flu vacc [id number](65yr up)-PF 180 mcg/0.5 mL syringe 0.5 ml IM ONCE Qty: 1 0RF Shingrix (PF) 50 mcg/0.5 mL suspension for reconstitution 0.5 ml IM ONCE Qty: 1 0RF cholecalciferol (vitamin D3) 125 mcg (5,000 unit) capsule 125 mcg PO DAILY B-complex with vitamin C Capsule 1 cap PO DAILY fluticasone propionate [Flonase Allergy Relief] 50 mcg/actuation spray,suspension 1 spray intranasal DAILY PRN (Reason: nasal congestion) Qty: 16 0RF Rx Instructions: administer into each nostril albuterol sulfate [Ventolin HFA] 90 mcg/actuation HFA aerosol inhaler 2 puff inhalation Q6H PRN (Reason: shortness of breath or wheezing) Qty: 8.5 0RF Discharge Orders: Discharge ED (Routine); Ordered 03/04/25 Ordered By: Pilo Gilmore Referrals: José Antonio Esparza MD [Primary Care Provider, Family Practice] Discharge Diet: Advance as tolerated Discharge Activity: Resume usual activity Patient Instructions: Syncope (ED) Print Language: Belizean Coding Level of Care Code ED Podiatry Doctor for Kaycee Kwong
[2025-03-04 13:34] LABS: Hematocrit 39.6 % (36-47); Hemoglobin 13.20 g/dL (11.27-16.99); Mean Corpuscular HGB Conc 33.3 g/dL (30-55); Mean Corpuscular Hemoglobin 29.5 pg (27-33); Mean Corpuscular Volume 88.4 fl (85-98); Nucleated Red Blood Cells % 0 %; Platelet Count 219 10^3/cmm (157-399); Red Blood Count 4.48 10^6/uL (3.85-5.65); White Blood Count 5.09 10^3/uL (3.29-11.43)
[2025-03-04 13:54] LABS: Troponin(5th) Baseline 7 ng/L (0-10)
[2025-03-04 13:55] LABS: Alanine Aminotransferase 28 U/L (0-33); Albumin Level 4.8 g/dL (3.5-5.2); Alkaline Phosphatase 73 U/L (35-105); Anion Gap 14.4 (5-19); Aspartate Amino Transferase 27 U/L (0-32); Blood Urea Nitrogen 11 mg/dL (8-23); Calcium 9.4 mg/dL (8.5-10.5); Carbon Dioxide 26 mmol/L (22-29); Chloride 105 mmol/L (98-107); Globulin 2.0 g/dL (1.3-4.6); Glucose 88 mg/dL (65-115); Osmolality Calculated 291 mOsm/kg (285-295); Potassium 4.4 mmol/L (3.5-5.1); Sodium 141 mmol/L (136-145); Total Protein 6.8 g/dL (6.6-8.7)
[2025-03-04 14:14] VITALS: BP 112/70; PULSE 73; O2SAT 96
== END 2025-03-04 14:17 | disposition home or self-care (01) ==
PROVIDERS: Emergency Provider Emergency Medicine; PCP Family Medicine
DX: R55 Syncope and collapse (principal); N18.2 Chronic kidney disease, stage 2 (mild)
CPT/HCPCS: 36415; 70450; 71045; 80053; 84484; 85025; 85378; 93005; 99285

== ENCOUNTER 2025-03-18 14:20 | Outpatient (CLI) | payer MEDICARE, SELFPAY ==
--- NOTE | 2025-03-18 14:30 | USCV_ITS ---
Fransisca Bolton Age: 69 Gender: F : 1955 Exam Date: 03/18/2025 14:46 Ordering Phys: José Antonio Esparza MD Technologist: Exam Location: [facility] – [place] Indication: syncope Risk Factors: Previous Vascular Surgery: Right Brachial BP: / Left Brachial BP: / Right Left Velocity (cm/s) Spectral Plaque Velocity (cm/s) Spectral Plaque Syst/Diast Broadening Syst/Diast Broadening 76.30/ 21.90 Prox CCA 88.90 / 25.20 97.80/ 26.60 Mid CCA 96.10 / 32.90 92.60/ 25.30 Distal CCA 89.30 / 30.20 69.00/ 19.40 Prox ICA 80.70 / 20.90 79.60/ 27.00 Mid ICA 57.00 / 21.80 88.40/ 32.30 Distal ICA 70.90 / 28.50 78.00 ECA 88.10 0.70 ICA/CCA 0.90 Antegrade Vertebral Antegrade 76.80/ 19.10 cm/s 74.10/ 19.30 cm/s Tri Subclavian Tri 150.7 138.5 0 0 FINDINGS Comparison: none available. No significant elevation of systolic or diastolic velocities. Waveforms are normal. No significant amount of calcified plaque or intimal thickening identified. CONCLUSIONS Normal carotid doppler ultrasound. Dr. Zahra Tobar DO (Electronically Signed) Final Date: 18 March 2025 15:37 S
== END 2025-03-18 14:21 | disposition home or self-care (01) ==
LOC: RAD 14:24
PROVIDERS: PCP Family Medicine; Visit Provider Family Medicine
DX: R55 Syncope and collapse (principal)
CPT/HCPCS: 93880

== ENCOUNTER → 2025-04-06 13:19 | Outpatient (BNVA) | payer MEDICARE, SELFPAY | PROVIDERS: PCP Family Medicine; Visit Provider Internal Medicine Cardiovascular Disease | DX: G90.A Postural orthostatic tachycardia syndrome [POTS] (principal) | CPT/HCPCS: 99204 ==